=== PATIENT | male | born 1960 | race Caucasian/White ===

== ENCOUNTER 2017-01-19 10:30 | Emergency (ER) | payer BC ==
[2017-01-19] MEDS ORDERED: SODIUM BICARBONATE 2.4 MEQ/5 ML SDVIAL IV ONE (10:34)
[2017-01-19] MEDS ORDERED: LIDOCAINE HCL 2% (50ML VIAL) INF ONE (10:38)
[2017-01-19] MEDS ORDERED: LIDOCAINE HCL 2% (20ML MULTI-DOSE VIAL) NR ONE (10:43)
--- NOTE | 2017-01-19 10:43 | PDOC ---
History of Present Illness - General Chief Complaint: Pain Stated Complaint: RIGHT 3RD FINGER SWELLING, PAIN Time Seen by Provider: 01/19/17 10:33 - History of Present Illness Initial Comments: 56 year old male with PMH of HTN and mild depression presenting with right middle finger pain and swelling overt the past week. Patient states that he had a slight redness and swelling that started on Saturday on the edge of his right finger that has progressively become more swollen and has become slightly white- yellow underneath the skin by his finger nail. He denies any trauma or He had a paronychia a few years back that was drained but he does not recall the location of the site. He also does not recall receiving a tetanus or TDAP booster. He denies fevers, chills, nausea, vomiting, diarrhea, cough, chest pain , or any other sick symptoms. 01/19/17 10:36 Past History - Past Medical History Allergies/Adverse Reactions: Allergies Allergy/AdvReac Type Severity Reaction Status Date / Time No Known Allergies Allergy Verified 01/19/17 10:32 Home Medications: Ambulatory Orders Zolpidem Tartrate [Ambien] 10 mg PO HS PRN #30 tablet 07/22/15 Multivitamins [Multivit ([facility] Formul[facility])] 1 tab PO DAILY 08/22/16 Vitamin E 400 unit PO DAILY 08/22/16 Cephalexin 250 mg PO ASDIR 01/19/17 Anemia: No Asthma: No Cancer: No Cardiac Disorders: No CVA: No COPD: No CHF: No Dementia: No Diabetes: No GI Disorders: No Disorders: No HTN: Yes Hypercholesterolemia: No Liver Disease: No Psychiatric Problems: Yes (DEPRESSION/ANXIETY) Seizures: No Thyroid Disease: No - Surgical History Abdominal Surgery: No Appendectomy: No Cardiac Surgery: No Cholecystectomy: No Lung Surgery: No Neurologic Surgery: No Orthopedic Surgery: No - Psycho/Social/Smoking Cessation Hx Anxiety: No Suicidal Ideation: No Smoking History: Former smoker Have you smoked in the past 12 months: No If you are a former smoker, when did you quit?: 1987 Hx Alcohol Use: Yes (FEW TIMES PER MONTH) Substance Use Type: Alcohol Review of Systems - Review of Systems Constitutional: No: Chills, Diaphoresis, Fever HEENTM: No: Blurred Vision, Tearing, Recent change in vision, Double Vision, Cataracts Respiratory: No: Cough, Shortness of Breath, Wheezing, Productive cough Cardiac (ROS): No: Chest Pain, Edema ABD/GI: No: Constipated, Diarrhea, Nausea, Poor Appetite : No: Dysuria, Discharge, Frequency Musculoskeletal: No: Back Pain Integumentary: Yes: Change in Color, Erythema Neurological: No: Headache, Paresthesia Psychiatric: Yes: Depression *Physical Exam - Physical Exam General Appearance: Yes: Nourished, Appropriately Dressed. No: Apparent Distress HEENT: positive: EOMI, KACIE, Normal Voice Neck: positive: Trachea midline, Normal Thyroid, Supple. negative: Tender, Rigid Respiratory/Chest: positive: Lungs Clear, Normal Breath Sounds. negative: Chest Tender, Respiratory Distress, Accessory Muscle Use Cardiovascular: positive: Regular Rhythm, Regular Rate, S1, S2. negative: Edema , Murmur Gastrointestinal/Abdominal: positive: Normal Bowel Sounds, Flat, Soft. negative : Tender Musculoskeletal: positive: Normal Inspection. negative: Decreased Range of Motion Extremity: positive: Erythema, Inflammation, Other (Swelling of volar ulnar portion of the distal third digit with erythema and slight discoloration at the distal portion of the sweelling. No obvious drainage. Area of tenderness and fluctuance along the same area.) Integumentary: positive: Dry, Warm, Erythema. negative: Normal Color Neurologic: positive: Fully Oriented, Alert, Normal Mood/Affect, Normal Response Procedures - Incision and Drainage I&D Site: Right: Paronychia Anesthesia: 2% Lidocaine Blade Size: 11 Plain Packing: No Complications: none Dressing: Yes Progress: Drainage of right third digit paronychia extending along the superior portion and ulnar portion of the finger nail. Anesthetized with 9 CCs of 10:2 2% lidocaine: sodium bicarb mixture with good anesthesia achieved after the second attempt of anesthesia. An 11 blade was placed along the nail surface and the skin at the cuticle was lifted off gently expressing approximetaly 1.5 CC of puss and 3-4 CCs of blood. Patient tolerated the procedure well and there were no complications. Good hemostasis and pain controlled achieved after the procedure. Bacitracin placed along the incision site and lightly dressed with 3 2x2 guaze and nylon tape. 01/19/17 12:13 Medical Decision Making - Medical Decision Making 56 year old male with PMH of depression and HTN presenting with right third digit paronychia. No fevers chills or other signs of systemic infection. Paronychia drained per above. Patient given TDAP and 375 Naproxen for pain. 01/19/17 12:04 *DC/Admit/Observation/Transfer Diagnosis at time of Disposition: Paronychia of finger of right hand - Discharge Dispostion Disposition: HOME Condition at time of disposition: Stable Admit: No - Referrals Referrals: Mik Crow MD [Primary Care Provider] - - Patient Instructions Printed Discharge Instructions: DI for Paronychia Additional Instructions: You were seen for right finger pain that we believe is an infection of the area aroudn your nail called a paronychia. We drained the area using a sharp blade and removed most of the infection. That area will bleed for a few more hours and will be slightly sore after the numbing medication wears off. You should keep the area clean but can shower as normal, just make sure to protect that area from injury and dry it off thoroughly. You can cover it with bacitracin and a light bandage but do not wrap it too tightly. We also gave you a tetanus booster shot with the pertussis vaccine (TDAP). Please follow up with your primary care physician as you feel necessary. Please take you antibiotics as prescribed unless the redness clears earlier in which case you can take it for one extra day after the redness clears. Please return to the ED if you notice worsening swelling over the next few days, fevers, chills, nausea, vomiting, diarrhea, or any new sick symptoms that are concerning. - Attestations Physician Attestion: 01/19/17 11:41 I, Dr. Tiarra Izaguirre, attest that this document has been prepared under my direction and personally reviewed by me in its entirety. I further attest, that it accurately reflects all work, treatment, procedures and medical decision -making performed by me. 01/19/17 12:20
[2017-01-19 10:46] VITALS: BP 108/72; PULSE 76; TEMP 97.8; BMI 28.3
[2017-01-19] MEDS ORDERED: DIPHTH,PERTUSS(ACELL),TET 0.5 ML DISP.SYRIN IM ONE (11:26)
[2017-01-19] MEDS ORDERED: NAPROXEN 375 MG TABLET (FP) PO ONE (11:28)
[2017-01-19] MEDS ORDERED: NAPROXEN 375 MG TABLET (FP) ONE (11:32)
--- NOTE | 2017-01-19 12:02 | PDOC ---
Attending Attestation - Resident Resident Name: ZinaKayeniallmore - ED Attending Attestation I have performed the following: I have examined & evaluated the patient, The case was reviewed & discussed with the resident, I agree w/resident's findings & plan - HPI HPI: 01/19/17 11:56 paronychia right middle finger taking keflex from PMD but getting worse no fever - Physicial Exam PE: 01/19/17 11:56 large paronychia middle finger no felon focal collection of significant pus - Medical Decision Making 01/19/17 11:57 paronychia drained under local digital block of the finger under direct supervision significant pus expressed bacitracin and bandage advised to continue keflex
== END 2017-01-19 11:46 | disposition home or self-care (01) ==
LOC: FER 10:30
PROC: 0H9FXZZ Drainage of Right Hand Skin, External Approach (ICD-10-PCS; principal; 2017-01-19)
PROC: 3E033GC Introduction of Other Therapeutic Substance into Peripheral Vein, Percutaneous Approach (ICD-10-PCS; 2017-01-19)
PROC: 3E0234Z Introduction of Serum, Toxoid and Vaccine into Muscle, Percutaneous Approach (ICD-10-PCS; 2017-01-19)
DX: L03.011 Cellulitis of right finger (principal)
CPT/HCPCS: 90715; 99282-25

== ENCOUNTER 2020-02-06 13:10 | Emergency (ER) | payer BC, OTHER ==
[2020-02-06] MEDS ORDERED: SODIUM CHLORIDE 0.9% 1000 ML INFUS.BAG IV ONE (13:25)
[2020-02-06 13:43] VITALS: BP 110/78; PULSE 71; TEMP 97.8; BMI 30.9
[2020-02-06 13:59] LABS: BASO % 0.8 % (0-2.0); EOS % 2.6 % (0-4.5); HEMATOCRIT 41.1 % (35.4-49); HEMOGLOBIN 13.8 GM/dl (11.7-16.9); LYMPH % 22.6 % (8-40); MCHC 33.7 g/dl (32.0-35.9); MEAN CELL VOLUME 95.1 fl (80-96); MEAN PLT VOLUME 7.5 fl (7.5-11.1); MONO % 9.3 % (3.8-10.2); NEUT % 64.7 % (42.8-82.8); PLATELET COUNT 239 K/MM3 (134-434); RBC 4.32 M/mm3 (4.00-5.60); RDW 12.5 % (11.9-15.9); WHITE BLOOD COUNT 8.4 K/mm3 (4.0-10.8)
--- NOTE | 2020-02-06 14:08 | PDOC ---
History of Present Illness - General Chief Complaint: Injury Stated Complaint: LEFT CHEST INJURY History Source: Patient Exam Limitations: No Limitations - History of Present Illness Initial Comments: 02/06/20 14:05 59-year-old male history of hypertension , hld, currently taking 1 baby aspirin a week here today status post fall 6 days ago. Patient states he was working in the [employer] [place] in the [place] subsequently fell landing on the left side hitting a rafter has been complaining of left-sided rib pain since his fall was seen today at urgent care had a chest x-ray which was reportedly negative for fractures however they noted that he had some left flank ecchymosis was sent here for further evaluation concerns for CAT scan. Patient denies any feelings of lightheadedness no shortness of breath no fevers no chills no other current complaints has been ambulating well since his fall pain is mild achy not relieved by [id number] pain medication 02/06/20 17:18 simvastatin rampipril asa 81mg twice weekly. 02/06/20 17:21 Past History - Medical History Allergies/Adverse Reactions: Allergies Allergy/AdvReac Type Severity Reaction Status Date / Time No Known Allergies Allergy Verified 02/06/20 13:26 Home Medications: Ambulatory Orders Zolpidem Tartrate [Ambien] 10 mg PO HS PRN #30 tablet 07/22/15 Multivitamins [Multivit ([facility] Formulary)] 1 tab PO DAILY 08/22/16 Vitamin E 400 unit PO DAILY 08/22/16 Ibuprofen [Motrin -] 600 mg PO TID PRN #60 tablet 02/06/20 Anemia: No Asthma: No Cancer: No Cardiac Disorders: No CVA: No COPD: No CHF: No Dementia: No Diabetes: No GI Disorders: No Disorders: No HTN: Yes Hypercholesterolemia: No Liver Disease: No Psychiatric Problems: Yes (DEPRESSION/ANXIETY) Seizures: No Thyroid Disease: No - Surgical History Abdominal Surgery: No Appendectomy: No Cardiac Surgery: No Cholecystectomy: No Lung Surgery: No Neurologic Surgery: No Orthopedic Surgery: No - Psycho-Social/Smoking History Smoking History: Never smoked Have you smoked in the past 12 months: No If you are a former smoker, when did you quit?: 1988 - Substance Abuse Hx (Audit-C & DAST Scrn) How often the patient has a drink containing alcohol: Never Score: In Men: 4 or > Positive; In Women: 3 or > Positive: 0 Screen Result (Pos requires Nsg. Audit-10AR): Negative In the last yr the pt used illegal drug/Rx for NonMed reason: No Score: Yes response is considered Positive: 0 Screen Result (Positive result requires Nsg. DAST-10): Negative Review of Systems - Review of Systems Constitutional: No: Chills, Fever HEENTM: No: Eye Pain Respiratory: No: Cough, Shortness of Breath Cardiac (ROS): Yes: Chest Pain ABD/GI: No: Nausea, Vomiting : No: Burning, Dysuria, Discharge Musculoskeletal: Yes: Back Pain Neurological: No: Headache, Numbness, Paresthesia Psychiatric: No: Frequent Crying, Stressors, Sleep Pattern Change All Other Systems: Reviewed and Negative *Physical Exam - Vital Signs Last Vital Signs Temp Pulse Resp BP Pulse Ox 97.8 F 71 16 110/78 94 L 02/06/20 13:11 02/06/20 13:11 02/06/20 13:11 02/06/20 13:11 02/06/20 13:11 - Physical Exam 02/06/20 14:06 Awake alert no acute distress head is atraumatic there is no cervical spine tenderness lungs are clear bilaterally there is mild palpable left lateral lower rib tenderness no crepitus no step-offs noted. Abdomen is soft and nontender there is mild left lower quadrant ecchymosis but relatively nontender no CVA tenderness. No midline TL or S spine tenderness. Patient has full range of motion in all 4 extremities hips and pelvis are stable skin other than the one area of ecchymosis in the left lower abdomen is intact GCS is 15 ED Treatment Course - LABORATORY CBC & Chemistry Diagram: 02/06/20 13:50 02/06/20 13:44 - ADDITIONAL ORDERS Additional order review: 02/06/20 13:50 RBC 4.32 MCV 95.1 MCHC 33.7 RDW 12.5 MPV 7.5 Neutrophils % 64.7 Lymphocytes % 22.6 D Monocytes % 9.3 Eosinophils % 2.6 Basophils % 0.8 D - RADIOLOGY Radiology Studies Ordered: Category Date Time Status ABDOMEN & PELVIS CT WITH CONTR [CT] Stat CT Scan 02/06/20 13:24 Ordered - Medications Given in the ED: ED Medications Discontinued Medications Generic Name Dose Route Start Last Admin Trade Name Freq PRN Reason Stop Dose Admin Sodium Chloride 1,000 ml 02/06/20 13:25 02/06/20 13:50 Normal Saline - IV 02/06/20 13:26 1,000 ml ONCE ONE Administration Medical Decision Making - Medical Decision Making 02/06/20 14:07 59-year-old male status post fall complaining of left rib pain happened 6 days ago. Differential includes subtle rib fracture versus solid organ injury. Plan CT chest abdomen pelvis and basic labs . 02/06/20 17:15 CT chest abdomen pelvis is negative for any acute traumatic injury however incidental small pericardial effusion was noted. Further questioning the patient for any recent chest pressure pain or recent viral illness. He does state that he had a cough in July of this year at that time he was in [place] patient would like to be tested for COVID antibodies" with swab while he is here today. Focused ED ultrasound performed very trace pericardial effusion overall has preserved contractility no RV strain or dilation patient will be referred to outpatient cardiology for follow-up he sees Dr. Crow given referral for Dr. Singh told to call and schedule follow-up to be seen within 1 to 2 weeks Discharge - Discharge Information Problems reviewed: Yes Clinical Impression/Diagnosis: Trauma, Chest wall contusion, Pericardial effusion Condition: Improved Disposition: HOME - Admission No - Additional Discharge Information Prescriptions: Ibuprofen [Motrin -] 600 mg PO TID PRN #60 tablet PRN Reason: Pain - Follow up/Referral Referrals: Mik Crow MD [Primary Care Provider] - - Patient Discharge Instructions Patient Printed Discharge Instructions: Pericarditis -- Adult, DI for Rib Contusion Additional Instructions: He should follow-up with Dr. Duong within 1 to 2 weeks he should call and schedule. In addition you should see a facialist see referral information for Dr. Singh call to schedule appointment to be seen within 1 to 2 weeks. Your CAT scan today was negative for any traumatic injuries however it does show an incidental small amount of fluid around your heart called a pericardial effusion. Otherwise your work-up today is unremarkable you can take ibuprofen 600 mg every 8 hours as needed for your pain take with food return for any s hortness of breath fevers chills worsening pain or any concerns - Post Discharge Activity
[2020-02-06 14:13] LABS: ALBUMIN 4.3 g/dl (3.4-5.0); BILIRUBIN,TOTAL 0.8 mg/dl (0.2-1); CALCIUM 9.5 mg/dl (8.5-10); CREATININE 0.8 mg/dl (0.55-1.3); POTASSIUM 3.9 mmol/L (3.5-5.1); TOT PROT 6.5 g/dl (6.4-8.2)
[2020-02-06] MEDS ORDERED: IBUPROFEN 600 MG TABLET (FP) PO ONE ×2 (17:22→17:23)
--- NOTE | 2020-02-08 18:30 | EKG ---
Test Reason : Blood Pressure : / mmHG Vent. Rate : 063 BPM Atrial Rate : 063 BPM P-R Int : 184 ms QRS Dur : 110 ms QT Int : 404 ms P-R-T Axes : 058 -09 045 degrees QTc Int : 413 ms NORMAL SINUS RHYTHM INFERIOR-POSTERIOR INFARCT , AGE UNDETERMINED ABNORMAL ECG NO PREVIOUS ECGS AVAILABLE Confirmed by ERMA NICHOLS MD ([id number]) on 02/08/2020 6:29:31 PM Referred By: Confirmed By:ERMA NICHOLS MD
== END 2020-02-06 17:33 | disposition home or self-care (01) ==
LOC: FER 13:10
DX: S20.212A Contusion of left front wall of thorax, initial encounter (principal); I31.3 Pericardial effusion (noninflammatory)
CPT/HCPCS: 36415; 71250-TC; 74177-TC; 80053; 85025; 86769; 93005; 93308; 99285-25; Q9967; U0003

== ENCOUNTER 2024-09-03 12:05 | Emergency (ER) | payer OTHER ==
[2024-09-03 12:29] VITALS: BP 121/83; PULSE 72; RESP 18; TEMP 98.2; BMI 30.3
[2024-09-03 14:48] LABS: HCV DIAGNOSTIC IN-HOUSE W/RFLX NON-REACTIVE (NONREACTIVE); HIV INTERPRETATION NEGATIVE (NEGATIVE)
== END 2024-09-03 14:17 | disposition home or self-care (01) ==
LOC: FER 12:05
DX: S29.011A Strain of muscle and tendon of front wall of thorax, initial encounter (principal); V19.9XXA Pedal cyclist (driver) (passenger) injured in unspecified traffic accident, initial encounter
CPT/HCPCS: 36415; 71046-TC-FY; 84484; 86803; 87389; 93005; 93010; 99284-25